=== PATIENT | female | born 1995 | race Two or more races ===

== ENCOUNTER 2023-02-20 15:36 | Emergency (ER) | payer SELFPAY ==
[~2023-02-20] VITALS: Ht 162.6 cm; Wt 81.8 kg
[2023-02-20] MEDS ORDERED: TOBR0.3S LEFTEYE (17:19)
[2023-02-20] MEDS ORDERED: CIP03OS RIGHTEYE (17:19)
[2023-02-20 17:43] VITALS: BP 128/65
== END 2023-02-22 19:48 | disposition home or self-care (01) ==
LOC: ER 15:36
DX: H10.33 Unspecified acute conjunctivitis, bilateral (principal)